=== PATIENT | female | born 1990 | race Caucasian/White ===

== ENCOUNTER 2024-08-02 22:20 | Inpatient (IN) | payer OTHER, SELFPAY ==
[2024-08-03 01:35] VITALS: BMI 17.8
--- NOTE | 2024-08-03 01:44 | PC.ADMIT ---
Admitted these34 y.o female patient per stretcher accompanied by ambulance staff and windows security engineer w/ the signed CV. Upon admission pt is oriented to the unit and staff. Pt is alert and oriented to person, place,date and situation.. During admission process pt. is cooperative But sometimes impatient. Skin assessment done w/tattoo in her R.arm and in the back of her neck. She has barbel piercing on the R. upper lip area. She has a dry and scaly bilateral feet and no pedal edema. Pt. has presenting symptoms of impulsivity, anxiety and or panic. According to the records pt was seen on 04/07 at [facility] after ingesting a toothbrush(which was repeated again 1+month ago. At that time the pt was returned to [place] [facility] on section 35 against her will. Pt also ingested 2 batteries while in the ED, one was removed. Pt has past medical hx of Hepatitis C, Substance abuse, DM, HX of Elbow dislocation. Has DX of Borderline PDO, Anxiety unspecified, Bipolar D/O. Dr. Nielsen informed of the admission w/ new orders in and acknowledged. Pt is for hospitalist consult and put on 1:1 for safety. Pt denies SI/HI/ AVH and feels safe in the unit. We'll continue to monitor patient.
--- NOTE | 2024-08-03 02:31 | PC.NURSE ---
Med reconcillation is done per [facility] medication history but pt is not taking her medications except the Clonidine.
[2024-08-03] MEDS: hydrOXYzine HCL 25 MG TABLET PO ×2 (03:54→18:43)
[2024-08-03 04:58] VITALS: BP 110/70; PULSE 110; RESP 18; TEMP 36.4; O2SAT 96
[2024-08-03 08:00] VITALS: BP 165/93; PULSE 75; RESP 16; TEMP 36.4; O2SAT 96
--- NOTE | 2024-08-03 08:28 | PHA.MEDREC ---
Pharmacy Consult ? Medication Reconciliation Pharmacy has completed the medication reconciliation. Reveiwed med rec done by nursing. Claims match. Removed everything except Clonidine to reflect that the patient states they are only taking clonidine and haven't filled anything else since April.
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
[2024-08-03 10:29] LABS: Alanine Aminotransferase 10 U/L (0-31); Albumin Level 4.3 g/dL (3.5-5.0); Alkaline Phosphatase 64 U/L (39-117); Anion Gap 14 (12-20); Aspartate Amino Transferase 14 U/L (5-31); Bilirubin Total 0.3 mg/dL (0.0-1.0); Blood Urea Nitrogen 13 mg/dL (9-16); Calcium 9.2 mg/dL (8.4-10.2); Carbon Dioxide 26 mmol/L (22-29); Chloride 104 mmol/L (96-108); Creatinine Clr Calc Pharmacy 79.1; Estimated Glomerular Filt Rate > 60; Glucose Random 90 mg/dL (60-115); Potassium 4.3 mmol/L (3.3-5.1); Sodium 140 mmol/L (135-145); Total Protein 7.9 g/dL (6.5-8.0)
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
[2024-08-03] MEDS: ARIPiprazole 5 MG TABLET PO (14:15)
[2024-08-03] MEDS: methADONE HCl 20 MG/2 ML ORAL.CONC 10 MG PO (16:15)
[2024-08-03 17:11] VITALS: BP 132/80
[2024-08-03] MEDS: cloNIDine HCL 0.1 MG TABLET PO ×2 (17:11→21:30)
[2024-08-03] MEDS: Nicotine Polacrilex 2 MG GUM 4 MG BUCCAL (18:43)
[2024-08-03] MEDS: LORazepam 1 MG TABLET PO (19:17)
[2024-08-03 20:00] VITALS: BP 127/75; PULSE 104; RESP 18; TEMP 37.2; O2SAT 96
[2024-08-03] MEDS: ARIPiprazole ER 400 MG SUSER.SYR IM (20:29)
[2024-08-03] MEDS: Gabapentin 300 MG CAPSULE PO (20:32)
[2024-08-03] MEDS: Doxepin HCl 10 MG CAPSULE 20 MG PO (20:32)
[2024-08-03] MEDS: Prazosin HCL 1 MG CAPSULE PO (20:32)
[2024-08-03 21:30] VITALS: BP 100/58
[2024-08-03] MEDS: Doxepin HCl 10 MG CAPSULE PO (21:37)
[2024-08-03] MEDS: traZODone HCL 50 MG TABLET PO (22:58)
[2024-08-04] MEDS: traZODone HCL 50 MG TABLET PO ×3 (01:48→20:46)
[2024-08-04] MEDS: cloNIDine HCL 0.1 MG TABLET PO ×3 (01:51→20:46)
[2024-08-04 08:00] VITALS: BP 114/59; PULSE 90; RESP 16; TEMP 36.4; O2SAT 99
[2024-08-04] MEDS: methADONE HCl 20 MG/2 ML ORAL.CONC PO (08:05)
[2024-08-04] MEDS: Gabapentin 300 MG CAPSULE PO ×3 (08:33→20:46)
[2024-08-04] MEDS: Dextroamphetamine/Amphetamine XR 10 MG CAP.ER.24H PO (08:33)
[2024-08-04] MEDS: ARIPiprazole 5 MG TABLET PO (08:33)
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
[2024-08-04 11:31] VITALS: BP 112/63
[2024-08-04] MEDS: LORazepam 1 MG TABLET PO (13:38)
[2024-08-04] MEDS: hydrOXYzine HCL 25 MG TABLET PO ×2 (14:49→20:46)
[2024-08-04 20:00] VITALS: BP 128/76; PULSE 116; RESP 18; O2SAT 96
[2024-08-04] MEDS: Doxepin HCl 10 MG CAPSULE 20 MG PO (20:46)
[2024-08-04] MEDS: Prazosin HCL 1 MG CAPSULE PO (20:46)
[2024-08-05] MEDS: traZODone HCL 50 MG TABLET PO (01:34)
[2024-08-05] MEDS: Doxepin HCl 25 MG CAPSULE 50 MG PO ×2 (01:34→21:47)
[2024-08-05] MEDS: cloNIDine HCL 0.1 MG TABLET PO ×2 (01:34→14:09)
[2024-08-05] MEDS: hydrOXYzine HCL 25 MG TABLET PO (01:34)
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
[2024-08-05] MEDS: methADONE HCl 20 MG/2 ML ORAL.CONC 30 MG PO (07:46)
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
[2024-08-05] MEDS: Gabapentin 300 MG CAPSULE PO ×3 (08:54→22:31)
[2024-08-05] MEDS: Dextroamphetamine/Amphetamine XR 10 MG CAP.ER.24H PO (08:54)
[2024-08-05] MEDS: ARIPiprazole 5 MG TABLET PO (08:54)
[2024-08-05 09:38] VITALS: BP 127/66; PULSE 71; TEMP 36.5; O2SAT 95
[2024-08-05] MEDS: Lactulose 20 GM/30 ML SOLUTION 30 GM PO (11:33)
[2024-08-05 19:49] VITALS: BP 95/56; PULSE 96; RESP 16; TEMP 36.9; O2SAT 98
[2024-08-05 22:32] VITALS: BP 91/50
[2024-08-05] MEDS: Prazosin HCL 1 MG CAPSULE 3 MG PO (22:32)
[2024-08-06 08:00] VITALS: BP 131/77; PULSE 88; RESP 16; TEMP 36.4; O2SAT 95
[2024-08-06] MEDS: methADONE HCl 20 MG/2 ML ORAL.CONC 30 MG PO (08:00)
[2024-08-06 08:42] LABS: Cholesterol 134 mg/dL (<200); HDL Cholesterol 47 mg/dL (>40); LDL Cholesterol Calculated 64 mg/dL (<100); Triglycerides 117 mg/dL (<150)
[2024-08-06] MEDS: Gabapentin 300 MG CAPSULE PO (08:52)
[2024-08-06] MEDS: Dextroamphetamine/Amphetamine XR 10 MG CAP.ER.24H PO (08:52)
[2024-08-06] MEDS: ARIPiprazole 5 MG TABLET PO (08:52)
[2024-08-06] MEDS: Lactulose 20 GM/30 ML SOLUTION 30 GM PO (08:53)
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
[2024-08-06] MEDS: methADONE HCl 20 MG/2 ML ORAL.CONC 10 MG PO (11:59)
[2024-08-06] MEDS: Gabapentin 100 MG CAPSULE PO ×2 (15:11→21:08)
[2024-08-06] MEDS: Nicotine Polacrilex 2 MG GUM 4 MG BUCCAL (16:07)
[2024-08-06] MEDS: Milk of Magnesia 30 ML ORAL.SUSP PO (16:07)
[2024-08-06] MEDS: polyethylene glycoL 3350 17 GM POWD.PACK PO (18:28)
[2024-08-06 20:00] VITALS: BP 122/76; PULSE 118; RESP 16; TEMP 37.1; O2SAT 95
[2024-08-06 21:08] VITALS: BP 122/76
[2024-08-06] MEDS: hydrOXYzine HCL 25 MG TABLET PO (21:08)
[2024-08-06] MEDS: Doxepin HCl 25 MG CAPSULE 50 MG PO (21:08)
[2024-08-06] MEDS: traZODone HCL 50 MG TABLET PO (21:08)
[2024-08-06] MEDS: Prazosin HCL 1 MG CAPSULE 3 MG PO (21:08)
[2024-08-06] MEDS: Acetaminophen 325 MG TABLET 650 MG PO (21:20)
--- NOTE | 2024-08-07 | ECG_ITS ---
Test Reason : Qtc monitoring Blood Pressure : / mmHG Vent. Rate : 089 BPM Atrial Rate : 078 BPM P-R Int : 130 ms QRS Dur : 078 ms QT Int : 398 ms P-R-T Axes : 050 031 031 degrees QTc Int : 484 ms Sinus rhythm with Premature supraventricular complexes and with frequent Premature ventricular complexes Otherwise normal ECG No previous ECGs available Referred By: Darrin Neil Electronically Signed By:Quirino Paris
[2024-08-07 00:41] VITALS: BP 130/83
[2024-08-07] MEDS: cloNIDine HCL 0.1 MG TABLET PO ×3 (00:41→21:36)
[2024-08-07] MEDS: traZODone HCL 50 MG TABLET PO ×2 (00:42→02:39)
[2024-08-07] MEDS: hydrOXYzine HCL 25 MG TABLET PO (02:39)
[2024-08-07 07:43] VITALS: BP 125/81; PULSE 100; RESP 18; TEMP 36.6; O2SAT 96
[2024-08-07] MEDS: methADONE HCl 20 MG/2 ML ORAL.CONC 50 MG PO (07:52)
[2024-08-07] MEDS: Dextroamphetamine/Amphetamine XR 10 MG CAP.ER.24H PO ×2 (08:08→11:46)
[2024-08-07] MEDS: Dextroamphetamine/Amphetamine XR 5 MG CAP.ER.24H PO (08:08)
[2024-08-07] MEDS: Gabapentin 100 MG CAPSULE PO ×3 (08:09→22:40)
[2024-08-07] MEDS: ARIPiprazole 5 MG TABLET PO (08:09)
[2024-08-07] MEDS: Lactulose 20 GM/30 ML SOLUTION 30 GM PO (08:27)
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
[2024-08-07] MEDS: polyethylene glycoL 3350 17 GM POWD.PACK PO ×5 (11:46→21:45)
[2024-08-07 12:37] VITALS: BP 119/78
[2024-08-07] MEDS: Milk of Magnesia 30 ML ORAL.SUSP PO (17:53)
[2024-08-07 20:00] VITALS: BP 130/76; PULSE 110; TEMP 36.8; O2SAT 96
[2024-08-07] MEDS: hydrOXYzine HCL 50 MG TABLET 100 MG PO (22:40)
[2024-08-07 22:41] VITALS: BP 130/76
[2024-08-07] MEDS: Prazosin HCL 1 MG CAPSULE 3 MG PO (22:41)
[2024-08-07] MEDS: Doxepin HCl 25 MG CAPSULE 50 MG PO (22:42)
[2024-08-08] MEDS: polyethylene glycoL 3350 17 GM POWD.PACK PO ×3 (06:48→16:22)
[2024-08-08] MEDS: Lactulose 20 GM/30 ML SOLUTION 30 GM PO (06:48)
[2024-08-08 08:00] VITALS: BP 128/76; PULSE 92; RESP 16; O2SAT 98
[2024-08-08] MEDS: methADONE HCl 20 MG/2 ML ORAL.CONC 60 MG PO (08:51)
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
[2024-08-08] MEDS: ARIPiprazole 5 MG TABLET PO (08:55)
[2024-08-08] MEDS: Dextroamphetamine/Amphetamine XR 10 MG CAP.ER.24H 30 MG PO (08:55)
[2024-08-08 17:08] VITALS: BP 107/63
[2024-08-08] MEDS: cloNIDine HCL 0.1 MG TABLET PO (17:08)
[2024-08-08] MEDS: hydrOXYzine HCL 25 MG TABLET PO (17:08)
[2024-08-08 20:00] VITALS: RESP 16
[2024-08-08] MEDS: Doxepin HCl 25 MG CAPSULE 50 MG PO (22:28)
[2024-08-08] MEDS: Prazosin HCL 1 MG CAPSULE 3 MG PO (22:28)
[2024-08-08] MEDS: hydrOXYzine HCL 50 MG TABLET 100 MG PO (22:28)
[2024-08-08 22:33] VITALS: BP 130/76; PULSE 88
[2024-08-09 03:33] VITALS: BP 102/60
[2024-08-09] MEDS: cloNIDine HCL 0.1 MG TABLET PO (03:33)
[2024-08-09] MEDS: hydrOXYzine HCL 25 MG TABLET PO (03:34)
[2024-08-09 05:11] VITALS: TEMP 36.3
[2024-08-09] MEDS: methADONE HCl 20 MG/2 ML ORAL.CONC 70 MG PO (07:36)
[2024-08-09] MEDS: ARIPiprazole 5 MG TABLET PO (07:37)
[2024-08-09] MEDS: Dextroamphetamine/Amphetamine XR 10 MG CAP.ER.24H 30 MG PO (07:37)
[2024-08-09] MEDS: Naloxone HCl Nasal TAKE HOME 4 MG SPRAY 8 MG NOSTRILALT (07:38)
[2024-08-09 08:00] VITALS: BP 126/75; PULSE 74; RESP 16; TEMP 36.4; O2SAT 98
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
== END 2024-08-09 10:42 | disposition home or self-care (01) | DRG 882 ==
PROVIDERS: Psychiatry & Neurology Psychiatry; Admitting Provider Psychiatry & Neurology Psychiatry; Visit Provider Psychiatry & Neurology Psychiatry
DX: F43.25 Adjustment disorder with mixed disturbance of emotions and conduct (principal); R45.851 Suicidal ideations; F43.10 Post-traumatic stress disorder, unspecified; F14.10 Cocaine abuse, uncomplicated; F11.90 Opioid use, unspecified, uncomplicated; Z62.810 Personal history of physical and sexual abuse in childhood; F17.210 Nicotine dependence, cigarettes, uncomplicated; Z71.6 Tobacco abuse counseling; Z79.899 Other long term (current) drug therapy
CPT/HCPCS: 36415; 80053; 80061; 93005; J0401; T1004

== ENCOUNTER 2024-08-02 22:20 | Outpatient (BNV) | payer OTHER, SELFPAY | END 2024-08-07 12:51 | PROVIDERS: Admitting Provider Psychiatry & Neurology Psychiatry; Visit Provider Internal Medicine Cardiovascular Disease | DX: I49.3 Ventricular premature depolarization (principal) | CPT/HCPCS: 93010 ==

== ENCOUNTER → 2024-08-02 22:20 | Outpatient (BNV) | payer OTHER, SELFPAY | PROVIDERS: Admitting Provider Psychiatry & Neurology Psychiatry; Visit Provider Student in an Organized Health Care Education/Training Program | DX: Z00.8 Encounter for other general examination (principal) | CPT/HCPCS: 99429 ==

== ENCOUNTER → 2024-08-02 22:20 | Outpatient (BNV) | payer OTHER, SELFPAY | PROVIDERS: Admitting Provider Psychiatry & Neurology Psychiatry; Visit Provider Psychiatry & Neurology Psychiatry | DX: F14.10 Cocaine abuse, uncomplicated (principal); F43.25 Adjustment disorder with mixed disturbance of emotions and conduct; F43.11 Post-traumatic stress disorder, acute; F11.90 Opioid use, unspecified, uncomplicated | CPT/HCPCS: 90792; 99231; 99232; 99238 ==